=== PATIENT | female | born 1940 | race African-American/Black ===

== ENCOUNTER 2018-09-02 05:25 | Day surgery (SDC) | payer MEDICARE, MEDICAID ==
[~2018-09-02] VITALS: Ht 165.1 cm; Wt 78.5 kg
[~2018-09-02 05:25] MED LIST: BACLOFEN; GABAPENTIN; LACTATED RINGERS 1,000 ML IV SCH; TRAMADOL
[2018-09-02] MEDS ORDERED: LACTATED RINGERS 1,000 ML IV SCH (06:00)
[2018-09-02] MEDS ORDERED: SKIN ADHESIVE 0.7 GM EA TOP ONE (06:04)
[2018-09-02] MEDS ORDERED: BUPIVACAINE HCL 0.5% (5MG/ML) 50ML ONE (06:05)
[2018-09-02] MEDS ORDERED: SUCCINYLCHOLINE CHLORIDE 200MG/10ML IV ONE (06:42)
[2018-09-02] MEDS ORDERED: MIDAZOLAM HCL 2 MG/2 ML VIAL ONE (06:42)
[2018-09-02] MEDS ORDERED: FENTANYL CITRATE/PF 50MCG/ML 2ML VIAL ONE (06:42)
[2018-09-02] MEDS ORDERED: ROCURONIUM BROMIDE 10MG/ML VIAL 5ML IV ONE (06:42)
[2018-09-02] MEDS ORDERED: LIDOCAINE HCL 1% 20ML VIAL (Pyxis) INJ ONE (06:43)
[2018-09-02] MEDS ORDERED: PROPOFOL 200MG/20ML VIAL IV ONE (06:43)
[2018-09-02] MEDS ORDERED: SODIUM CHLORIDE 0.9% 10ML VIAL ONE ×3 (07:12→08:58)
[2018-09-02] MEDS ORDERED: CEFAZOLIN SODIUM 1000MG/VIAL ONE (07:12)
[2018-09-02] MEDS ORDERED: DEXAMETHASONE 4MG/ML 1ML VIAL ONE (07:15)
[2018-09-02] MEDS ORDERED: ONDANSETRON HCL 4MG/2ML INJ ONE (07:15)
[2018-09-02] MEDS ORDERED: EPHEDRINE SULFATE 50MG/ML VIAL ONE (07:16)
[2018-09-02] MEDS ORDERED: ASPI-1393 PO (07:49)
[2018-09-02] MEDS ORDERED: LIRA0.6P SQ (07:49)
[2018-09-02] MEDS ORDERED: RALO60TA13 PO (07:49)
[2018-09-02] MEDS ORDERED: SITA50TA3 PO (07:49)
[2018-09-02] MEDS ORDERED: DICY20TA11 PO (07:49)
[2018-09-02] MEDS ORDERED: ALBU18HF2 IH (07:49)
[2018-09-02] MEDS ORDERED: PREG100C PO (07:49)
[2018-09-02] MEDS ORDERED: AMLO5TAB4 PO (07:49)
[2018-09-02] MEDS ORDERED: CRES10 PO (07:49)
[2018-09-02] MEDS ORDERED: LETR2.5T6 PO (07:49)
[2018-09-02] MEDS ORDERED: METF100092 PO (07:49)
[2018-09-02] MEDS ORDERED: HYDR-4005 PO (07:49)
[2018-09-02] MEDS ORDERED: CLAR10 PO (07:49)
[2018-09-02] MEDS ORDERED: METOCLOPRAMIDE HCL 10MG/2ML VIAL ONE (08:47)
[2018-09-02] MEDS ORDERED: ESMOLOL HCL 10MG/ML 10ML VIAL IV ONE ×2 (08:53→08:56)
[2018-09-02] MEDS ORDERED: HYDRALAZINE 20MG/ML VIAL ONE (08:58)
[2018-09-02] MEDS ORDERED: NEOSTIGMINE METHYLSULFATE 1MG/ML 10 ML VIAL ONE (09:15)
[2018-09-02] MEDS ORDERED: GLYCOPYRROLATE 0.2 MG/ML 2ML VIAL ONE (09:15)
[2018-09-02] MEDS: HYDROMORPHONE HCL/PF 2MG/ML CPJ IV PRN ×3 (09:43→09:56)
[2018-09-02] MEDS ORDERED: HYDROCODONE/ACETAMINOPHEN 10/325MG TABLET PO NR (12:45)
[2018-09-02 13:25] VITALS: BP 123/65
== END 2018-09-02 13:26 | disposition home or self-care (01) ==
LOC: OR 05:25
PROVIDERS: ATTEND Surgery
DX: K43.2 Incisional hernia without obstruction or gangrene (principal); Z91.041 Radiographic dye allergy status; Z91.013 Allergy to seafood; Z79.899 Other long term (current) drug therapy; Z79.82 Long term (current) use of aspirin; Z79.84 Long term (current) use of oral hypoglycemic drugs
CPT/HCPCS: 49656; 82962; C1781; G0168; J0330; J0360; J0690; J1100; J1170; J2250; J2405; J2704; J2710; J2765; J3010; J3490